=== PATIENT | female | born 1970 | race Caucasian/White ===

== ENCOUNTER 2023-07-11 23:41 | Emergency (ER) | payer OTHER, SELFPAY ==
[2023-07-11 23:41] VITALS: BMI 42.1
[2023-07-11 23:48] VITALS: BP 158/94
--- NOTE | 2023-07-12 03:15 | ED.GENMED ---
History of Present Illness
General
Chief Complaint: Skin Problem
Source: patient
Exam Limitations: none
Time Seen by Provider: 07/12/23 03:03
Nursing documentation reviewed up to this point in time: agreed with
Travel History
Have you had any contact with someone who has COVID-19?: No
Do you have any symptoms of coronavirus? Fever > 100 degrees, chills, cough, shortness of breath, sore throat, loss of taste or smell, muscle aches, or headache?: No
History of Present Illness
History of Present Illness:
53-year-old female itchy painful rash on her right posterior ankle over Achilles was bitten by some flies while in [place] scratching the area frequently on doxycycline 100 mg a day prophylactically due to hidradenitis history, no fevers no nausea
or vomiting developing some blisters and redness her main complaint is pain and itchiness
Past History
Past History
ED Past Medical History: Other (Hydroadenitis,)
Social History
Tobacco: Non-smoker
Alcohol: None
Drug: None
Personal:
Living: with family
Employment: Employed
Family History
Family History: Diabetes and Other ([place])
Review of Systems
Review of Systems
All Other Systems: Not applicable
Constitutional: Denies fever or fatigue
Skin: Reports itching and rash
Phy Exam
Physical Exam
Physical Exam:
Physical Exam
General: no apparent distress, not acutely ill
Neck: No jaundice
Heart: s1/s2 regular rate and rhythm, no murmur. equal radial pulses.
Lungs: no acute respiratory distress.
Neuro: alert and oriented. no focal neurological deficits
Skin: no rash
Psychiatric: well kept. interactive and cooperative
Extremities: Right posterior ankle Quarter size wound with surrounding erythema some warmth it is pruritic clear blisters
Course
Orders/Labs/Results
Orders:
Orders
07/12/23 03:09
Dexamethasone Sod Phosphate [Decadron] 10 mg IV NOW STA
Diphenhydramine [Benadryl] 25 mg IV NOW STA
07/12/23 03:11
Doxycycline [Vibramycin] 200 mg PO NOW STA
07/12/23 03:15
Complete Blood Count/With Diff Urgent
Comprehensive Metabolic Panel Urgent
Vital Signs
Initial and Last Documented VS:
Initial Vital Signs
Temp Pulse Resp BP Pulse Ox
97.7 F 82 20 158/94 100
07/11/23 23:48 07/11/23 23:48 07/11/23 23:48 07/11/23 23:48 07/11/23 23:48
Last Documented Vital Signs
Temp Pulse Resp BP Pulse Ox
97.7 F 82 20 158/94 100
07/11/23 23:48 07/11/23 23:48 07/11/23 23:48 07/11/23 23:48 07/11/23 23:48
MDM/Problems Addressed
Differential Diagnosis Includes:
Contact dermatitis, cellulitis combination
MDM/Problems Addressed:
Itchy warm rash
*Pulse Oximetry
Patient hypoxic: no
*Critical Care Note
Total Time (30-74mins, 75-104mins- exclusive of procedures): Not Applicable
Update Note
Update Note:
Suspect is likely contact dermatitis perhaps superimposed cellulitis, will treat with a steroid and antihistamine allergies are noted we will continue doxycycline at a higher dose
ED Attending Note
-
Portions of this chart may have been created with voice recognition software.� Occasional wrong word or��sound alike� substitutions may have occurred due to the inherent limitations of voice recognition software.
Discharge Plan
Departure
Prescriptions:
No Action
ondansetron HCl 4 MG tablet
4 mg PO TIDPRN PRN (Reason: nausea and vomiting) Qty: 15 0RF
Interventions
Interventions:
*Risk Screen - Suicide Last Done: 07/11/23 23:48
*Neglect/Abuse Screening Last Done: 07/11/23 23:48
Discharge Date and Time
Print Language: S[place]
[2023-07-12] MEDS: VIBRAMYCIN 200 MG PO (03:59)
[2023-07-12] MEDS: DECADRON 10 MG IV (03:59)
[2023-07-12] MEDS: BENADRYL 25 MG IV (03:59)
[2023-07-12 04:09] LABS: % Basophils 0.6 % (0-2); % Eosinophils 4.6 % (0-6); % Immature Granulocytes 0.3 % (0-0.5); % Lymphocytes 18.3 % (20.5-51.1); % Neutrophils 67.2 % (42.2-75.2); Absolute Basophils 0.1 10^3/uL (0-0.2); Absolute Eosinophils 0.5 10^3/uL (0-0.7); Absolute Lymphocytes 2.1 10^3/uL (1.2-3.4); Absolute Neutrophils 7.8 10^3/uL (1.4-6.5); Hematocrit 42.3 % (37.0-47.0); Hemoglobin 14.5 g/dL (12.0-16.0); Mean Corp Hgb Conc. 34.3 g/dL (33.0-37.0); Mean Corpuscular Hgb 28.4 pg (27.0-31.0); Mean Corpuscular Volume 82.9 fL (81.0-99.0); Mean Platelet Volume 10.7 fL (7.4-10.4); Nucleated Red Blood Cells % 0 %; Platelet Count 358 10^3/uL (130-400); Red Cell Dist. Width 13.6 % (11.5-14.5); White Blood Cell Count 11.6 10^3/uL (4.8-10.8)
[2023-07-12 04:22] LABS: ALT (SGPT) 19 U/L (0-35); AST (SGOT) 25 U/L (14-36); Albumin 4.7 g/dl (3.5-5.0); Alkaline Phosphatase 90 U/L (38-126); Blood Urea Nitrogen 22 mg/dl (7-17); Calcium 10.4 mg/dl (8.4-10.2); Carbon Dioxide 20 mmol/L (22-30); Chloride 105 mmol/L (98-107); Glucose 111 mg/dl (70-99); Potassium 4.4 mmol/L (3.5-5.1); Sodium 138 mmol/L (135-145); Total Bilirubin 0.9 mg/dl (0.2-1.3); Total Protein 7.6 g/dl (6.3-8.2); eGFR > 60.00
[2023-07-12 05:08] VITALS: BP 145/77
== END 2023-07-12 05:09 | disposition home or self-care (01) ==
LOC: EMR 23:41
PROVIDERS: EMERGENCY PHYSICIAN Emergency Medicine; FAMILY PHYSICIAN Family Medicine
DX: R21 Rash and other nonspecific skin eruption (principal); L29.9 Pruritus, unspecified; L73.2 Hidradenitis suppurativa; R01.1 Cardiac murmur, unspecified; Z88.1 Allergy status to other antibiotic agents; Z88.8 Allergy status to other drugs, medicaments and biological substances
CPT/HCPCS: 99284; 96374; 96375; 80053; 85025